=== PATIENT | female | born 1980 | race African-American/Black ===

== ENCOUNTER 2019-08-03 21:45 | Emergency (ER) | payer BC ==
[~2019-08-03] VITALS: Ht 167.6 cm; Wt 55.3 kg
--- NOTE | 2019-08-03 21:52 | NUR ---
PT IN BED, A&O 4. PT C/O OF N/V AND DIZZNESS. PAIN IN ABD OF 04/29. IV #18 G IN L AC WITH NS INFUSING.
[2019-08-03] MEDS ORDERED: IV NS 0.9% 1,000 ML BAG IV ONE (22:30)
[2019-08-03] MEDS ORDERED: ONDANSETRON HCL/PF 4 MG/2 ML VIAL ONE (22:30)
[2019-08-03] MEDS ORDERED: ONDANSETRON HCL/PF 4 MG/2 ML VIAL IVP ONE (22:30)
[2019-08-03 22:37] LABS: BASOPHILS # (AUTO) 0.2 /CMM (0.0-0.2); BASOPHILS % (AUTO) 3.9 % (0.0-2.0); EOSINOPHILS % (AUTO) 4.1 % (0.0-6.0); HEMATOCRIT 38 % (33-45); HEMOGLOBIN 12.8 g/dL (11.5-14.8); LYMPHOCYTES # (AUTO) 1.5 /CMM (0.8-4.8); LYMPHOCYTES % (AUTO) 26.1 % (20.0-44.0); MEAN CORPUSCULAR HGB CONC 34 g/dl (31.0-36.0); MEAN CORPUSCULAR VOLUME 88 fL (82-100); MONOCYTES # (AUTO) 0.3 /CMM (0.1-1.30); MONOCYTES % (AUTO) 4.9 % (2.0-12.0); NEUTROPHILS # (AUTO) 3.4 /CMM (1.8-8.9); PLATELET COUNT (AUTO) 277 /CMM (150-450); RED BLOOD CELL COUNT(AUTO) 4.32 MIL/uL (4.0-5.2); WHITE BLOOD COUNT (AUTO) 5.6 K/uL (4.3-11.0)
[2019-08-03 22:47] LABS: CALCIUM, SERUM 8.6 mg/dL (8.5-10.1); CARBON DIOXIDE 25 mmol/L (21-32); CHLORIDE 105 mmol/L (98-107); GLUCOSE 100 mg/dL (74-106); POTASSIUM 3.7 mmol/L (3.5-5.1); SODIUM SERUM 141 mmol/L (136-145); UREA NITROGEN, BLOOD 12 mg/dL (7-18)
--- NOTE | 2019-08-04 00:04 | NUR ---
PT REPORTED FEELING BETTER NO MORE N/V OR DIZZINESS. IV WAS REMOVED PRIOR TO DEPARTURE. PT VERBALIZED UNDERSTANDING OF ALL D/C TEACHING AND INSTRUCTIONS.
== END 2019-08-04 00:10 | disposition home or self-care (01) ==
LOC: ER 21:48
DX: R55 Syncope and collapse (principal); R11.0 Nausea; K58.9 Irritable bowel syndrome, unspecified; Z87.01 Personal history of pneumonia (recurrent)
CPT/HCPCS: 36415; 80048; 84484; 84703; 85025; 93005; 96361; 96374; 99284; J2405; J7030